=== PATIENT | female | born 1975 | race Caucasian/White ===

== ENCOUNTER 2016-08-18 00:49 | Emergency (ER) | payer OTHER ==
[2016-08-18 01:31] LABS: ABSOLUTE NEUTROPHIL COUNT 4.9 K/mm3 (1.8-7.7); BASO % 0.5 % (0.2-1.0); EOS # 0.2 (0.0-0.5); EOS % 2.4 % (0.9-2.9); HEMATOCRIT 38.2 % (37.0-47.0); HEMOGLOBIN 12.6 gm/l (12.0-16.0); IMM NEUT% 0.1 % (0-1); LYMPH # 1.9 (1.0-4.8); LYMPH % 23.8 % (15-45); MEAN CELL VOLUME 92.7 fl (81.0-99.0); MEAN CORPUSCULAR HEMOGLOBIN 30.6 pg (27.0-31.0); MEAN PLATELET VOLUME 10.9 fl (7.4-10.4); MONO # 0.9 (0.0-0.8); MONO % 11.6 % (4-12); NEUT % 61.6 % (43-75); PLATELET COUNT 254 K/mm3 (130-400)
[2016-08-18] MEDS ORDERED: ONDANSETRON 4 MG/2ML 2 ML VIAL ONE (01:39)
[2016-08-18] MEDS ORDERED: SODIUM CHLORIDE 0.9% 1,000 ML ONE (01:39)
[2016-08-18 01:44] LABS: ALB/GLOB RATIO 1.6 (>1.0); ALBUMIN 4.5 gm/dL (3.5-5.7); CALCIUM 9.2 mg/dL (8.6-10.3)
[2016-08-18] MEDS ORDERED: MAALOX/LIDO2%VISC/SIMETHICONE 40 ML BOT ONE (01:56)
[2016-08-18] MEDS ORDERED: HYDROMORPHONE HCL 1 MG/ML SYRINGE ONE (02:23)
[2016-08-18] MEDS ORDERED: KETOROLAC TROMETHAMINE 30 MG/ML 1 ML VIAL ONE (02:23)
--- NOTE | 2016-08-18 07:45 | US ---
Exam: Gallbladder ultrasound COMPARISON: CT 07/22/2011 INDICATION: Right upper quadrant pain with nausea and vomiting for 2 days. Elevated ALT. FINDINGS: Gallbladder ultrasound was obtained. Gallbladder is distended. Several large stones are identified within the gallbladder. There is no gallbladder wall thickening or pericholecystic fluid. There was a negative sonographic Reid's sign. Distal common bile duct normal at 5 mm. IMPRESSION: Cholelithiasis without sonographic features of acute cholecystitis or biliary ductal dilation. Preliminary report transmitted to the emergency department from [facility] at 0314 hours 08/18/2016.
== END 2016-08-18 03:53 | disposition home or self-care (01) ==
LOC: ED 00:49
DX: K80.20 Calculus of gallbladder without cholecystitis without obstruction (principal); R11.2 Nausea with vomiting, unspecified; F17.210 Nicotine dependence, cigarettes, uncomplicated
CPT/HCPCS: 83690; 85025; 80053; 76705; 96375 ×2; 99284 ×2; 96374; J1170; A9270; J1885; J2405; J7030

== ENCOUNTER 2016-09-30 07:41 | Day surgery (SDC) | payer OTHER ==
[2016-09-30] MEDS ORDERED: CEFAZOLIN SODIUM 2 GRAM PREMIX 100 ML IV PRN (08:00)
[2016-09-30] MEDS ORDERED: CEFAZOLIN SODIUM 2 GRAM DUPLEX 50 ML IV PRN (08:00)
[2016-09-30] MEDS ORDERED: CEFAZOLIN SODIUM 2 GRAM PREMIX 100 ML IV ONE (08:06)
[2016-09-30] MEDS ORDERED: LACTATED RINGERS 1,000 ML ONE (08:06)
[2016-09-30] MEDS ORDERED: IV START KIT ONE (08:06)
[2016-09-30] MEDS ORDERED: ONDANSETRON 4 MG/2ML 2 ML VIAL ONE (08:52)
[2016-09-30] MEDS ORDERED: KETOROLAC TROMETHAMINE 30 MG/ML 1 ML VIAL ONE (08:52)
[2016-09-30] MEDS ORDERED: MIDAZOLAM HCL 5 MG/5 ML VIAL ONE (08:52)
[2016-09-30] MEDS ORDERED: LIDOCAINE 2% (MULTI DOSE) 10 ML VIAL ONE (08:52)
[2016-09-30] MEDS ORDERED: DEXAMETHASONE SOD PHOS 4 MG/1 ML VIAL ONE (08:52)
[2016-09-30] MEDS ORDERED: PROPOFOL 20 ML IV ONE ×2 (08:52→10:36)
[2016-09-30] MEDS ORDERED: ROCURONIUM BROMIDE 10 MG/ML DOSE IV ONE (08:52)
[2016-09-30] MEDS ORDERED: FENTANYL 250 MCG/5 ML AMP ONE ×2 (08:52→09:50)
[2016-09-30] MEDS ORDERED: SODIUM CHLORIDE 0.9% 50 ML ONE (09:04)
[2016-09-30] MEDS ORDERED: BUPIVACAINE 0.5% W/EPI SDV 30 ML VIAL ONE (09:04)
[2016-09-30] MEDS ORDERED: IOPAMIDOL 300 (61%) 30 ML SDV ONE (09:04)
[2016-09-30] MEDS ORDERED: ONDANSETRON 4 MG/2ML 2 ML VIAL IV PRN ×2 (09:46→11:35)
[2016-09-30] MEDS ORDERED: HYDROMORPHONE HCL 1 MG/ML SYRINGE IV PRN (09:46)
[2016-09-30] MEDS ORDERED: PROMETHAZINE HCL 25 MG/ML VIAL IM PRN (09:46)
[2016-09-30] MEDS ORDERED: FENTANYL 100 MCG/2 ML VIAL IV PRN (09:46)
[2016-09-30] MEDS ORDERED: LACTATED RINGERS 1,000 ML IV SCH (10:00)
--- NOTE | 2016-09-30 10:56 | RAD ---
CHOLANGIOGRAM-OPERATIVE COMPARISON: Ultrasound of the gallbladder, 08/18/2016 HISTORY: Operative cholangiogram performed by Thomas Weaver MD. Cholelithiasis. Fluoroscopy time: 16.6 seconds. Contrast: Low osmolar. FINDINGS: Common bile duct: Normal. Intrahepatic bile ducts: Normal. Duodenum: Normal. IMPRESSION: 1. Normal operative cholangiogram.
[2016-09-30] MEDS ORDERED: MORPHINE SULFATE 2 MG/ML SYRINGE IV PRN (11:35)
[2016-09-30] MEDS ORDERED: ACETAMINOPHEN 325 MG TABLET PO PRN (11:35)
[2016-09-30] MEDS ORDERED: KETOROLAC TROMETHAMINE 30 MG/ML 1 ML VIAL IV PRN (11:35)
[2016-09-30] MEDS ORDERED: MORPHINE SULFATE 10 MG/ML SYRINGE IV PRN (11:53)
[2016-09-30] MEDS ORDERED: MORPHINE SULFATE 4 MG/ML SYRINGE IV PRN (11:53)
[2016-09-30] MEDS ORDERED: OXYCODONE HCL 5 MG TABLET ONE ×2 (12:04→13:25)
[2016-09-30] MEDS ORDERED: ACETAMINOPHEN 325 MG TABLET ONE (12:05)
[2016-09-30] MEDS: OXYCODONE HCL 5 MG TABLET PO PRN ×2 (12:08→13:25)
--- NOTE | 2016-09-30 15:59 | OP ---
TARAS ALARCON [id number] DATE OF OPERATION: September 30, 2016 PREOPERATIVE DIAGNOSIS: Chronic cholecystitis with cholelithiasis. POSTOPERATIVE DIAGNOSIS: Chronic cholecystitis with cholelithiasis. PROCEDURE: LAPAROSCOPIC CHOLECYSTECTOMY WITH INTRAOPERATIVE CHOLANGIOGRAM. SURGEON: Thomas Weaver M.D. LINE PRODUCTION COOK: Hanna Zhang ANESTHESIA: General endotracheal by Luna Rubi C.R.N.A. General endotracheal. INDICATIONS: This is a 40-year-old female who presents for elective surgery. She has chronic biliary colic and has ultrasound evidence of cholelithiasis. DESCRIPTION: With informed consent she was taken to the operating room. She was laid supine on the operating room table. General endotracheal anesthetic was administered. The abdomen was prepped and draped in the usual fashion. Local anesthetic was administered below the umbilicus. An incision was made. The fascia was grasped with Cosmo clamps and divided with curved Treviño scissors. Sutures of Surgilon were placed in the fascial edges and a Timbo port was placed. A pneumoperitoneum was created. Local anesthetic was administered in the mid epigastrium and along the right lateral abdominal wall. Incisions were made. The 5 mm ports were placed. The fundus of the gallbladder was grasped and retracted cephalad. The infundibulum was retracted laterally. The cystic duct was identified and dissected free. A clip was placed. The duct was partially transected. A cholangiogram catheter was placed. A cholangiogram was obtained showing flow of contrast into the duodenum without filling defect. Contrast was seen refluxing into the hepatic ducts. The catheter was removed. Two clips were placed on the cystic duct stump and it was completely transected. Next, the cystic artery was identified and dissected free. Three clips were placed, and it was transected leaving two clips on the stump. The gallbladder was then taken off the liver bed using electrocautery. It was placed within an EndoCatch bag and removed through the infraumbilical port site. The right upper quadrant was irrigated. Hemostasis was insured. Ports were removed and the pneumoperitoneum was evacuated. The infraumbilical fascial defect was closed with [id number] sutures of #0 Vicryl. All other fascial defects were small. Skin was closed with subcuticular #4-0 Monocryl. Mastisol and SteriStrips were placed. Sterile dressings were applied. She tolerated the procedure and was taken to the recovery room in stable condition. Note was made that needle, instrument and lap counts were reported as correct at time of closure. Cc: Ronald Bingham M.D.
--- NOTE | 2016-10-02 12:31 | SURGPATH ---
[facility] [address] [place] [id number] Patient Name: TARAS ALARCON MR#: [id number] : 1975 Gender: F Specimen #: [id number] Collected: 09/30/2016 Received: 10/01/2016 Reported: 10/02/2016 Submitting Phys: SONA CONTRERAS Copy To Phys: [facility] LAWANDA SMITH Clinical History / Pre-Operative Diagnosis: CHRONIC CHOLECYSTITIS WITH CHOLELITHIASIS Specimen Source / Surgical Procedure Performed: GALLBLADDER Interpretation: GALLBLADDER, CHOLECYSTECTOMY: - CHRONIC CHOLECYSTITIS. CHOLELITHIASIS. Electronically Signed Out Tree Lobato M.D. Gross Description: The specimen is received in a formalin filled container labeled with the patient's name and "gallbladder". An intact and engorged gallbladder is 11 x 3 cm. The serosa is smooth and pink-villegas. The wall averages 0.2 cm. The mucosa is green and velvety. There is no nodule or induration. The lumen contains thick, dark green bile and multiple irregular yellow-green calculi up to 1.7 cm. Margin Trimmer in one cassette Gordon Ryder Microscopic Description: Microscopic performed. 1: 49107 K81.1
== END 2016-09-30 13:30 | disposition home or self-care (01) ==
LOC: SDC 07:41
PROVIDERS: ATTEND Surgery
PROC: 0FT44ZZ Resection of Gallbladder, Percutaneous Endoscopic Approach (ICD-10-PCS; principal; 2016-09-30)
PROC: BF141ZZ Fluoroscopy of Gallbladder, Bile Ducts and Pancreatic Ducts using Low Osmolar Contrast (ICD-10-PCS; 2016-09-30)
DX: K80.10 Calculus of gallbladder with chronic cholecystitis without obstruction (principal); F32.9 Major depressive disorder, single episode, unspecified; F41.9 Anxiety disorder, unspecified; D50.9 Iron deficiency anemia, unspecified; J45.909 Unspecified asthma, uncomplicated; N30.20 Other chronic cystitis without hematuria
CPT/HCPCS: 47563; 74300; J3010 ×2; J1100; A9270 ×3; J1885; J2250; J2405; J7120; J7030; Q9967; J2001; J0690